=== PATIENT | female | born 1950 | race Hispanic/Latino ===

== ENCOUNTER 2018-01-17 20:05 | Emergency (ER) | payer OTHER, SELFPAY ==
--- NOTE | 2018-01-17 21:09 | RAD REPORT ---
EXAM DESCRIPTION: CT - C[facility]CSP[facility] - 01/17/2018 8:57 pm CLINICAL HISTORY: Fall, head and neck injury, persistent headache COMPARISON: None. TECHNIQUE: Axial 5 mm thick images of the head were obtained. Axial 2 mm thick images of the cervic al spine were obtained with sagittal and coronal reconstruction images generated and reviewed. All CT scans are performed using dose optimization technique as appropriate and may include automated exposure control or mA/KV adjustment according to patient size. FINDINGS: No intracranial hemorrhage, mass, edema or acute intracranial finding. No suspicion for ac point hope ira infarction. Atrophy and chronic ischemic changes are minimal. Mastoid air cells and paranasal sin uses are clear. No globe or orbit abnormality seen. Patient has a large scalp hematoma left parietal region. There is air in soft tissues. No foreign body. Underlying skull is intact. Cervical bodies are normal in height. No subluxation abnormality. Slight reversal of the usual cervic al lordosis could be muscle spasm or positioning artifact. C5-6 and C6-7 disc space narrowing and end plate spurring changes are present. Significant left facet degenerative change at C2-3 and C3-4. Ther e is left bony foraminal encroachment at C3-4. Significant bony foraminal encroachment from facet deg enerative change on the left at C4-5. Bilateral foraminal stenosis at C5-6 and C6-7. Findings are wor se on the left. No fracture or acute bony abnormality. No pathologic bone process. Central canal deta il is inherently limited. No paraspinal mass or hematoma. IMPRESSION: Large left parietal scalp hematoma with air in the soft tissues. No foreign body. Underl clarissa skull is intact. No hemorrhage, edema or acute intracranial finding. Advanced cervical spine degenerative change as detailed. No fracture or acute finding seen.
[2018-01-17] MEDS ORDERED: TETANUS & DIPHTHERIA TOX,ADULT 0.5 ML VIAL ONE (21:34)
--- NOTE | 2018-01-17 21:48 | ER ---
Nurse's Notes [facility] Name: Pam Beckwith Age: 67 yrs Sex: Female : 1950 Arrival Date: 01/17/2018 Time: 20:10 Bed 30 Private MD: Diagnosis: Laceration without foreign body of scalp;Other slipping, tripping and stumbling and falls;Superficial injury of head Presentation: 01/17 20:27 Presenting complaint: Patient states: "I fell last night and I didn't think it was that aj1 bad, but now I'm getting a bad headache. I have a bump where I hit my head" Patient states that she slipped when she was going to the bathroom last night and hit the back of her head on the door. Patient denies LOC, vomiting. Transition of care: patient was not received from another setting of care. Onset of symptoms was January 16, 2018. Risk Assessment: Do you want to hurt yourself or someone else?. Initial Sepsis Screen: Does the patient meet any 2 criteria? No. Patient's initial sepsis screen is negative. Does the patient have a suspected source of infection? No. Patient's initial sepsis screen is negative. Care prior to arrival: None. 20:27 Method Of Arrival: Ambulatory aj1 20:27 Acuity: TOPHER 4 aj1 Triage Assessment: 20:29 Headache History: Denies prior headaches. General: Appears in no apparent distress. aj1 comfortable, Behavior is calm, cooperative, appropriate for age. Pain: Complains of pain in occipital area Pain currently is 10 out of 10 on a pain scale. Pain began 1 day ago. Also complains of inability to concentrate. Neuro: Level of Consciousness is awake, alert, obeys commands, Oriented to person, place, time, situation, Moves all extremities. Full function Gait is steady, Speech is normal, Facial symmetry appears normal. Cardiovascular: Patient's skin is warm and dry. Respiratory: Airway is patent Respiratory effort is even, unlabored, Respiratory pattern is regular, symmetrical. Historical: - Allergies: 20:29 Tylenol ("stomach pain"); aj1 - Home Meds: 20:29 None [Active]; aj1 - PMHx: 20:29 None; aj1 - PSHx: 20:29 Tubal ligation; aj1 20:29 Cholecystectomy; aj1 - Immunization history:: Flu vaccine is not up to date. - Social history:: Smoking status: Patient uses tobacco products, smokes one-half pack cigarettes per day. - Ebola Screening: : Patient denies travel to an Ebola-affected area in the 21 days before illness onset. Screenin:55 Abuse screen: Denies threats or abuse. Denies injuries from another. Nutritional ak1 screening: No deficits noted. Tuberculosis screening: No symptoms or risk factors identified. Fall Risk None identified. Assessment: 20:35 General: Appears in no apparent distress. comfortable, well groomed, well developed, kr2 well nourished, Behavior is calm, cooperative, appropriate for age. Pain: Complains of pain in scalp and occipital area Pain does not radiate. Pain currently is 5 out of 10 on a pain scale. Quality of pain is described as aching, tender, Pain began gradually, Is continuous, Alleviated by medications, rest. Neuro: Level of Consciousness is awake, alert, obeys commands, Oriented to person, place, time, situation, Appropriate for age Plywood Patcher are equal bilaterally Moves all extremities. Facial symmetry appears normal, Pupils are PERRLA, Intact. Cardiovascular: Capillary refill < 3 seconds in bilateral fingers Patient's skin is warm and dry. Respiratory: Airway is patent Respiratory effort is even, unlabored, Respiratory pattern is regular, symmetrical. GI: Abdomen is flat, non-distended, Patient currently denies nausea, vomiting. EENT: Nares are clear bilaterally Oral mucosa is moist. Derm: Skin is healthy with good turgor, Skin is pink, warm \\T\\ dry. Musculoskeletal: Circulation, motion, and sensation intact. 20:35 Injury Description: Laceration sustained to scalp is clean, 0.5 to 2.5 cm long, no kr2 active bleeding noted at this time. 21:35 Reassessment: Patient appears in no apparent distress at this time. Patient and/or kr2 family updated on plan of care and expected duration. Pain level reassessed. Patient is alert, oriented x 3, equal unlabored respirations, skin warm/dry/pink. 21:45 Reassessment: Cleansed scalp laceration with Hibiclens and NS, patient tolerated. kr2 21:54 Reassessment: pt tolerated haley well. pt will have drive home. ak1 Vital Signs: 20:29 BP 114 / 72; Pulse 86; Resp 18; Temp 97.2; Pulse Ox 99% on R/A; Weight 72.57 kg (R); aj1 Height 4 ft. 9 in. (144.78 cm) (R); Pain 10/10; 21:36 BP 120 / 70; Pulse 88; Resp 16; Pulse Ox 99% on R/A; kr2 20:29 Body Mass Index 34.62 (72.57 kg, 144.78 cm) aj1 ED Course: 20:10 Patient arrived in ED. mr 20:28 Triage completed. aj1 20:29 Arm band placed on Patient placed in an exam room. aj1 20:38 Ferny Doll NP is PHCP. pm1 20:38 Waldemar Acosta MD is Attending Physician. pm1 20:42 Mireya Leal, DAVE is Primary Nurse. kr2 20:[address] via stretcher. eh 20:57 CT Head C Spine In Process Unspecified. EDMS 21:55 Patient has correct armband on for positive identification. Bed in low position. Call ak1 light in reach. Side rails up X 1. Adult w/ patient. 21:55 No provider procedures requiring assistance completed. Patient did not have IV access ak1 during this emergency room visit. Administered Medications: 21:28 Drug: Tetanus-Diphtheria Toxoid Adult 0.5 ml {Coach Tour Driver: Mint. Exp: ak1 03/01/2020. Lot #: [id number]. } Route: IM; Site: right deltoid; 21:45 Follow up: Response: No adverse reaction ak1 21:54 Drug: morphine 2 mg Route: IM; Site: right gluteus; ak1 21:54 Follow up: Response: No adverse reaction; Medication administered at discharge. ak1 Outcome: 21:47 Discharge ordered by MD. pm1 21:55 Condition: stable ak1 22:01 Discharged to home ambulatory, with family. ak1 22:01 Discharge instructions given to patient, family, Instructed on discharge instructions, follow up and referral plans. no drinking with medication, no driving heavy equipment, medication usage, wound care, Demonstrated understanding of instructions, follow-up care, medications, wound care, Prescriptions given X 2. 22:02 Patient left the ED. ak1 Signatures: Dispatcher [employer] EDAL Elba Laguna RN RN aj1 Estela Martin, Kari Dukes, RN RN ak1 Ferny Doll, VARNISH COOKER VARNISH COOKER pm1 Mireya Leal, RN RN kr2 Corrections: (The following items were deleted from the chart) 22:06 20:35 Derm: Skin is intact, is healthy with good turgor, Skin is pink, warm \\T\\ dry. kr2 kr2
--- NOTE | 2018-01-17 21:48 | EDPHYS ---
Physician Documentation [facility] Name: Pam Beckwith Age: 67 yrs Sex: Female : 1950 Arrival Date: 01/17/2018 Time: 20:10 Bed 30 Private MD: ED Physician Waldemar Acosta HPI: 01/17 21:00 This 67 yrs old Female presents to ER via Ambulatory with complaints of pm1 Headache. 21:00 The patient complains of pain to the left side of the back of head. The patient pm1 describes the headache as aching. Onset: The symptoms/episode began/occurred last night. Associated signs and symptoms: Pertinent negatives: altered mental status, nausea, neck stiffness, vomiting. Severity of symptoms: in the emergency department the pain is unchanged. patient going to restroom last night and slipped on the floor. Hit the back of her head against the door. Patient with laceration to the back of her head. No LOC. No neck pain. . Historical: - Allergies: 20:29 Tylenol ("stomach pain"); aj1 - Home Meds: 20:29 None [Active]; aj1 - PMHx: 20:29 None; aj1 - PSHx: 20:29 Tubal ligation; aj1 20:29 Cholecystectomy; aj1 - Immunization history:: Flu vaccine is not up to date. - Social history:: Smoking status: Patient uses tobacco products, smokes one-half pack cigarettes per day. - Ebola Screening: : Patient denies travel to an Ebola-affected area in the 21 days before illness onset. ROS: 21:00 Constitutional: Negative for fever, chills, and weight loss, Eyes: Negative for injury, pm1 pain, redness, and discharge, ENT: Negative for injury, pain, and discharge, Neck: Negative for injury, pain, and swelling, Cardiovascular: Negative for chest pain, palpitations, and edema, Respiratory: Negative for shortness of breath, cough, wheezing, and pleuritic chest pain, Abdomen/GI: Negative for abdominal pain, nausea, vomiting, diarrhea, and constipation, Back: Negative for injury and pain, : Negative for injury, bleeding, discharge, and swelling, MS/Extremity: Negative for injury and deformity. 21:00 Skin: Positive for laceration(s), of the left side of the back of head. 21:00 Neuro: Positive for headache, of the left side of the back of head. Exam: 21:00 Constitutional: This is a well developed, well nourished patient who is awake, alert, pm1 and in no acute distress. 21:00 Eyes: Pupils equal round and reactive to light, extra-ocular motions intact. Lids and lashes normal. Conjunctiva and sclera are non-icteric and not injected. Cornea within normal limits. Periorbital areas with no swelling, redness, or edema. ENT: Nares patent. No nasal discharge, no septal abnormalities noted. Tympanic membranes are normal and external auditory canals are clear. Oropharynx with no redness, swelling, or masses, exudates, or evidence of obstruction, uvula midline. Mucous membranes moist. Neck: Trachea midline, no thyromegaly or masses palpated, and no cervical lymphadenopathy. Supple, full range of motion without nuchal rigidity, or vertebral point tenderness. No Meningismus. Chest/axilla: Normal chest wall appearance and motion. Nontender with no deformity. No lesions are appreciated. Cardiovascular: Regular rate and rhythm with a normal S1 and S2. No gallops, murmurs, or rubs. Normal PMI, no JVD. No pulse deficits. Respiratory: Lungs have equal breath sounds bilaterally, clear to auscultation and percussion. No rales, rhonchi or wheezes noted. No increased work of breathing, no retractions or nasal flaring. Abdomen/GI: Soft, non-tender, with normal bowel sounds. No distension or tympany. No guarding or rebound. No evidence of tenderness throughout. Back: No spinal tenderness. No costovertebral tenderness. Full range of motion. Skin: Warm, dry with normal turgor. Normal color with no rashes, no lesions, and no evidence of cellulitis. MS/ Extremity: Pulses equal, no cyanosis. Neurovascular intact. Full, normal range of motion. 21:00 Head/face: Noted is no obvious of injury or deformity except a laceration(s), that is superficial, 2 cm(s), of the left side of the back of head. 21:00 Neuro: Orientation: is normal, Motor: is normal, moves all fours, Gait: is steady, at a normal pace, without difficulty. Vital Signs: 20:29 BP 114 / 72; Pulse 86; Resp 18; Temp 97.2; Pulse Ox 99% on R/A; Weight 72.57 kg (R); aj1 Height 4 ft. 9 in. (144.78 cm) (R); Pain 10/10; 21:36 BP 120 / 70; Pulse 88; Resp 16; Pulse Ox 99% on R/A; kr2 20:29 Body Mass Index 34.62 (72.57 kg, 144.78 cm) aj1 Laceration: 21:54 Wound Repair of 2cm ( 0.8in ) subcutaneous laceration to scalp. Linear shaped.. Distal pm1 neuro/vascular/tendon intact. Wound prep: Extensive cleansing with hibiclenz by nurse, Wound irrigation with saline by nurse, Wound explored extensively, Copious irrigation. Skin closed with 6 1-0 Srinivasan using staple gun. Patient tolerated well. MDM: 20:42 Patient medically screened. pm1 21:46 Data reviewed: vital signs. Data interpreted: Pulse oximetry: on room air is 99 %. pm1 Interpretation: normal. Counseling: I had a detailed discussion with the patient and/or guardian regarding: the historical points, exam findings, and any diagnostic results supporting the discharge/admit diagnosis, radiology results, the need for outpatient follow up, to return to the emergency department if symptoms worsen or persist or if there are any questions or concerns that arise at home. 01/17 20:38 Order name: CT Head C Spine; Complete Time: 21:17 pm1 01/17 21:42 Order name: Wound Care; Complete Time: 21:56 pm1 Administered Medications: 21:28 Drug: Tetanus-Diphtheria Toxoid Adult 0.5 ml {Jewel Waxer: Datical. Exp: ak1 03/01/2020. Lot #: [id number]. } Route: IM; Site: right deltoid; 21:45 Follow up: Response: No adverse reaction ak1 21:54 Drug: morphine 2 mg Route: IM; Site: right gluteus; ak1 21:54 Follow up: Response: No adverse reaction; Medication administered at discharge. ak1 Disposition: 01/18 06:18 Co-signature as Attending Physician, Waldemar Acosta MD Available for consultation at ps1 all times. . Disposition: 01/17/18 21:47 Discharged to Home. Impression: Laceration without foreign body of scalp, Other slipping, tripping and stumbling and falls, Superficial injury of head. - Condition is Stable. - Discharge Instructions: Head Injury, Adult, Stitches, Srinivasan, or Adhesive Wound Closure. - Prescriptions for Keflex 500 mg Oral Capsule - take 1 capsule by ORAL route every 12 hours for 10 days; 20 capsule. Tramadol 50 mg Oral Tablet - take 1 tablet by ORAL route every 8 hours as needed; 12 tablet. - Medication Reconciliation Form, Thank You Letter, Antibiotic Education, Prescription Opioid Use form. - Follow up: Emergency Department; When: As needed; Reason: Worsening of condition. Follow up: Private Physician; When: 10 - 14 days; Reason: Wound Recheck, Recheck today's complaints, Continuance of care, Staple/Suture removal, Re-evaluation by your physician. - Problem is new. - Symptoms have improved. Signatures: Dispatcher [employer] EDMS Elba Laguna RN RN aj1 Kari Forrest RN RN ak1 Ferny Doll, MANAGER DOMESTIC MANAGER DOMESTIC pm1 Waldemar Acosta MD MD ps1 Corrections: (The following items were deleted from the chart) 01/17 22:02 21:47 01/17/2018 21:47 Discharged to Home. Impression: Laceration without foreign body ak1 of scalp; Other slipping, tripping and stumbling and falls; Superficial injury of head. Condition is Stable. Forms are Medication Reconciliation Form, Thank You Letter, Antibiotic Education, Prescription Opioid Use. Follow up: Emergency Department; When: As needed; Reason: Worsening of condition. Follow up: Private Physician; When: 10 - 14 days; Reason: Wound Recheck, Recheck today's complaints, Continuance of care, Staple/Suture removal, Re-evaluation by your physician. Problem is new. Symptoms have improved. pm1
[2018-01-17] MEDS ORDERED: MORPHINE 2 MG/ML SYR ONE (21:58)
== END 2018-01-17 22:02 | disposition home or self-care (01) ==
LOC: ER 20:05
PROC: 0JQ00ZZ Repair Scalp Subcutaneous Tissue and Fascia, Open Approach (ICD-10-PCS; principal; 2018-01-17)
DX: S01.01XA Laceration without foreign body of scalp, initial encounter (principal); W18.49XA Other slipping, tripping and stumbling without falling, initial encounter; W22.8XXA Striking against or struck by other objects, initial encounter; Y92.002 Bathroom of unspecified non-institutional (private) residence as the place of occurrence of the external cause; Z23 Encounter for immunization; F17.210 Nicotine dependence, cigarettes, uncomplicated
CPT/HCPCS: 12001; 70450; 72125; 90714; 96372; 99284; J2270

== ENCOUNTER 2018-01-30 12:41 | Emergency (ER) | payer OTHER ==
--- NOTE | 2018-01-30 14:18 | EDPHYS ---
Physician Documentation [facility] Name: Pam Beckwith Age: 67 yrs Sex: Female : 1950 Arrival Date: 01/30/2018 Time: 12:44 Bed 19 Private MD: Out, [facility] ED Physician Hoang Hernandez HPI: 01/30 14:04 This 67 yrs old Female presents to ER via Ambulatory with complaints of Staple jmm Removal. 14:04 The patient has haley on the scalp. Previous treatment: The patient was initially jmm treated on January 17, 2018. Sutures/haley progress: The patient has no c/o's. The wound is well-healing with no redness, swelling, discharge, or dehiscence reported. Patient denies fever, drainage to the wound site. . Historical: - Allergies: 13:07 Tylenol ("stomach pain"); aj1 - Home Meds: 13:07 None [Active]; aj1 - PMHx: 13:07 None; aj1 - Immunization history:: Flu vaccine is not up to date. - Social history:: Smoking status: Patient uses tobacco products, denies chronic smoking, but will smoke occasionally. - Ebola Screening: : Patient denies travel to an Ebola-affected area in the 21 days before illness onset. ROS: 14:04 Constitutional: Negative for fever, chills, and weight loss, Cardiovascular: Negative jmm for chest pain, palpitations, and edema, Respiratory: Negative for shortness of breath, cough, wheezing, and pleuritic chest pain. 14:04 Skin: Positive for laceration(s). 14:04 All other systems are negative. Exam: 14:04 Eyes: EOMI, no conjunctival erythema appreciated ENT: Moist Mucus Membranes Neck: jmm Trachea midline, Supple Chest/axilla: Normal chest wall appearance and motion. Cardiovascular: Regular rate and rhythm. No edema appreciated Respiratory: Normal respirations, no respiratory distress appreciated Abdomen/GI: Non distended, soft 14:04 Constitutional: The patient appears in no acute distress, alert, awake. 14:04 Head/face: hematoma noted to the left parietal scalp, no erythema or drainage appreciated to the laceration site. 14:04 Skin: well healed laceration noted. 14:04 Neuro: Orientation: is normal, Mentation: is normal, Memory: is normal. 14:04 Psych: Behavior/mood is pleasant, cooperative. Vital Signs: 13:07 BP 126 / 82; Pulse 92; Resp 18; Temp 97.0; Pulse Ox 97% on R/A; Weight 72.57 kg (R); aj1 Height 4 ft. 9 in. (144.78 cm) (R); 13:07 Body Mass Index 34.62 (72.57 kg, 144.78 cm) aj Procedures: 14:16 Suture/Staple removal: Removed 7 haley, from scalp, site appears well healed, Patient jmm tolerated well. MDM: 14:04 Patient medically screened. [facility] 14:16 Data reviewed: vital signs, nurses notes. Counseling: I had a detailed discussion with elan the patient and/or guardian regarding: the historical points, exam findings, and any diagnostic results supporting the discharge/admit diagnosis, the need for outpatient follow up, to return to the emergency department if symptoms worsen or persist or if there are any questions or concerns that arise at home. 14:16 Data interpreted: Pulse oximetry: on room air is 97 %. [facility] Administered Medications: No medications were administered Disposition: 01/30/18 14:18 Discharged to Home. Impression: Encounter for removal of sutures. - Condition is Stable. - Discharge Instructions: Suture Removal, Care After. - Prescriptions for Tramadol 50 mg Oral Tablet - take 1 tablet by ORAL route every 8 hours as needed; 12 tablet. - Medication Reconciliation Form, Thank You Letter, Antibiotic Education, Prescription Opioid Use form. - Follow up: Private Physician; When: 2 - 3 days; Reason: Recheck today's complaints, Continuance of care, Re-evaluation by your physician. Addendum: 02/10/2018 07:25 Co-signature as Attending Physician, Hoang Hernandez MD I agree with the assessment and k dr plan of care. Signatures: Elba Laguna RN RN aj1 Hoang Hernandez MD MD kdr Mickail, Joel, PA PA [facility] Ronald Tompkins, REVERBERATORY FURNACE OPERATOR REVERBERATORY FURNACE OPERATOR em Corrections: (The following items were deleted from the chart) 01/30 14:29 14:18 01/30/2018 14:18 Discharged to Home. Impression: Encounter for removal of em sutures. Condition is Stable. Forms are Medication Reconciliation Form, Thank You Letter, Antibiotic Education, Prescription Opioid Use. Follow up: Private Physician; When: 2 - 3 days; Reason: Recheck today's complaints, Continuance of care, Re-evaluation by your physician. elan
--- NOTE | 2018-01-30 14:18 | ER ---
Nurse's Notes [facility] Name: Pam Beckwith Age: 67 yrs Sex: Female : 1950 Arrival Date: 01/30/2018 Time: 12:44 Bed 19 Private MD: Out, [facility] Diagnosis: Encounter for removal of sutures Presentation: 01/30 13:05 Presenting complaint: Patient states: She had haley put in her head 2 weeks ago and aj1 she is here to have them taken out. Transition of care: patient was not received from another setting of care. Onset of symptoms was January 2018. Risk Assessment: Do you want to hurt yourself or someone else? Patient reports no desire to harm self or others. Initial Sepsis Screen: Does the patient meet any 2 criteria? No. Patient's initial sepsis screen is negative. Does the patient have a suspected source of infection? No. Patient's initial sepsis screen is negative. Care prior to arrival: None. 13:05 Method Of Arrival: Ambulatory aj 13:05 Acuity: TOPHER 4 aj1 Triage Assessment: 13:07 General: Appears in no apparent distress. comfortable, Behavior is calm, cooperative, aj1 appropriate for age. Pain: Complains of pain in scalp. Pain: Pain currently is 7 out of 10 on a pain scale. Neuro: Level of Consciousness is awake, alert, obeys commands. Cardiovascular: Patient's skin is warm and dry. Respiratory: Airway is patent Respiratory effort is even, unlabored, Respiratory pattern is regular, symmetrical. Historical: - Allergies: 13:07 Tylenol ("stomach pain"); aj1 - Home Meds: 13:07 None [Active]; aj1 - PMHx: 13:07 None; aj1 - Immunization history:: Flu vaccine is not up to date. - Social history:: Smoking status: Patient uses tobacco products, denies chronic smoking, but will smoke occasionally. - Ebola Screening: : Patient denies travel to an Ebola-affected area in the 21 days before illness onset. Screenin:33 Abuse screen: Denies threats or abuse. Nutritional screening: No deficits noted. em Tuberculosis screening: No symptoms or risk factors identified. Fall Risk None identified. Assessment: 13:30 General: Appears in no apparent distress. comfortable, Behavior is calm, cooperative, em Denies fever. Pain: Denies pain. Neuro: Level of Consciousness is awake, alert, obeys commands, Oriented to person, place, time, situation. Cardiovascular: Capillary refill < 3 seconds Patient's skin is warm and dry. Respiratory: Airway is patent Respiratory effort is even, unlabored, Respiratory pattern is regular, symmetrical. GI: Abdomen is flat. : No signs and/or symptoms were reported regarding the genitourinary system. Derm: Skin is intact, is healthy with good turgor, Skin is pink, warm \\T\\ dry. Musculoskeletal: Range of motion: intact in all extremities. 13:35 Reassessment: I agree with previous assessment. Vital Signs: 13:07 BP 126 / 82; Pulse 92; Resp 18; Temp 97.0; Pulse Ox 97% on R/A; Weight 72.57 kg (R); aj1 Height 4 ft. 9 in. (144.78 cm) (R); 13:07 Body Mass Index 34.62 (72.57 kg, 144.78 cm) aj1 ED Course: 12:44 Patient arrived in ED. sb2 12:44 Out, of Town is Private Physician. sb2 13:07 Triage completed. aj1 13:07 Arm band placed on Patient placed in waiting room, Patient notified of wait time. aj 13:25 Ji Baez PA is PHCP. [facility] 13:25 Hoang Hernandez MD is Attending Physician. [facility] 13:26 Ronald Tompkins LVN is Primary Nurse. em 13:33 Patient has correct armband on for positive identification. Bed in low position. Call em light in reach. 13:33 No provider procedures requiring assistance completed. Patient did not have IV access em during this emergency room visit. Administered Medications: No medications were administered Outcome: 14:18 Discharge ordered by MD. [facility] 14:28 Discharged to home ambulatory. em 14:28 Condition: good em 14:28 Discharge instructions given to patient, Instructed on discharge instructions, follow up and referral plans. medication usage, Demonstrated understanding of instructions, follow-up care, medications, Prescriptions given X 1. 14:29 Patient left the ED. em Signatures: Elba Laguna RN RN aj1 Ji Baez PA PA [facility] Ronald Tompkins LVN AMBULANCE DRIVER [employer] em Bianchi, Rita, RN RN hb Billeau, Amy sb2
== END 2018-01-30 14:29 | disposition home or self-care (01) ==
LOC: ER 12:41
DX: Z48.02 Encounter for removal of sutures (principal); Z88.6 Allergy status to analgesic agent; Z72.0 Tobacco use
CPT/HCPCS: 99282